=== PATIENT | male | born 1965 ===

== ENCOUNTER 2018-03-08 07:00 | Inpatient (IN) | payer OTHER ==
[~2018-03-08] VITALS: Ht 243.8 cm; Wt 74.9 kg
[2018-03-08] MEDS ORDERED: LEVAQUIN500 MG (07:18)
[2018-03-15] MEDS ORDERED: MUPIROCIN22 GM NASAL (19:16)
[2018-03-15] MEDS ORDERED: CHLORHEXIDINE118 M1 TOP (19:16)
[2018-03-15] MEDS ORDERED: BACTRIM DS TAB1 EACH PO (19:16)
[2018-03-15] MEDS ORDERED: INTESTINEX680 M1 PO (19:16)
== END 2018-03-15 23:05 | DRG 603 ==
LOC: ER 07:00 → SEC-K 22:58 → MEDJ 22:58
PROC: 8E0ZXY6 Isolation (ICD-10-PCS; principal; 2018-03-08)
PROC: B54BZZZ Ultrasonography of Right Lower Extremity Veins (ICD-10-PCS; 2018-03-09)
DX: L03.115 Cellulitis of right lower limb (principal); B95.62 Methicillin resistant Staphylococcus aureus infection as the cause of diseases classified elsewhere; L02.415 Cutaneous abscess of right lower limb; S99.811A Other specified injuries of right ankle, initial encounter; X58.XXXA Exposure to other specified factors, initial encounter; Y93.89 Activity, other specified; Y92.89 Other specified places as the place of occurrence of the external cause; Y99.8 Other external cause status

== ENCOUNTER 2018-03-22 09:39 | Outpatient (CLI) | payer OTHER | END 2018-03-22 10:00 | disposition home or self-care (01) | LOC: NUCLEAR 09:39 | DX: I87.2 Venous insufficiency (chronic) (peripheral) (principal); I73.89 Other specified peripheral vascular diseases ==

== ENCOUNTER → 2018-03-22 | Outpatient (CLI) | payer OTHER ==
[~2018-03-22] MED LIST: BACTRIM DS TAB1 EACH PO; CHLORHEXIDINE118 M1 TOP; INTESTINEX680 M1 PO; LEVAQUIN500 MG; MUPIROCIN22 GM NASAL
== END | disposition home or self-care (01) ==
LOC: SONOGRAMA 13:11
DX: A49.02 Methicillin resistant Staphylococcus aureus infection, unspecified site (principal); L03.115 Cellulitis of right lower limb

== ENCOUNTER 2021-05-14 10:26 | Outpatient (CLI) | payer OTHER | END 2021-05-14 10:39 | disposition home or self-care (01) | LOC: SONOGRAMA 10:26 → MAMO-SONO 10:30 → SONOGRAMA 10:39 | DX: K76.0 Fatty (change of) liver, not elsewhere classified (principal) ==